=== PATIENT | female | born 1965 | race Caucasian/White ===

== ENCOUNTER 2023-10-28 12:24 | Inpatient (IN) | payer OTHER ==
[2023-10-28] MEDS ORDERED: NA CHLORIDE 0.9% 500 ML ONE (13:04)
[2023-10-28] MEDS ORDERED: ASPIRIN 81 MG CHEWABLE TABLET ONE (13:04)
[2023-10-28 13:10] LABS: Absolute Basophils 0.1 K/uL (0-0.5); Absolute Eosinophils 0.4 K/uL (0-0.5); Absolute Lymphocytes (CBC) 2.8 K/uL (0.7-4.9); Absolute Monocytes 0.6 K/uL (0.1-1.3); Absolute Neutrophil 3.4 K/uL (1.8-8.0); Basophils % 1.3 % (0-1.3); Hemoglobin 13.2 g/dL (12.0-15.0); Lymphocytes % 38.4 % (15.3-44.8); MCH 31.1 pg (27.0-35.0); MCHC 33.8 g/dL (32.0-36.0); MCV 92.2 fL (80-100); MPV 8.5 fL (7.6-11.3); Monocytes % 8.5 % (3.3-12.3); Neutrophils % 45.8 % (41.7-73.7); Platelets 310 thou/uL (152-406); RBC Red Blood Cell Count 4.23 M/uL (3.86-4.86); Red Cell Distribution Width 13.6 % (12.1-15.2)
[2023-10-28 13:21] LABS: D-Dimer 0.598 FEUug/mL (0-0.500); PT Prothrombin Time 10.8 SECONDS (9.4-12.5); Protime INR 0.96
[2023-10-28 13:29] LABS: Anion Gap 9.5 mEq/L (5.0-15.0); Potassium 3.5 mEq/L (3.5-5.1)
[2023-10-28 13:31] LABS: Troponin High Sensitivity 296.5 pg/mL (<58.9)
--- NOTE | 2023-10-28 13:50 | RAD REPORT ---
EXAM DESCRIPTION: Brianna Single View10/28/2023 1:36 pm CLINICAL HISTORY: Chest pain COMPARISON: none FINDINGS: The lungs appear clear of acute infiltrate. The heart is mildly enlarged IMPRESSION: No acute abnormalities displayed
--- NOTE | 2023-10-28 13:51 | ER ---
Nurse's Notes [facility] Name: Shruthi Cisneros Age: 58 yrs Sex: Female : 1965 Arrival Date: 10/28/2023 Time: 12:24 Bed 3 Private MD: Diagnosis: Non ST elevation PR;Essential (primary) hypertension Presentation: 10/27 12:33 Chief complaint: Patient states: chest pain X 1 hour, radiating to jaw , crushing pain iw and pain through shoulder blades, has been having pains for past month, worse today. Coronavirus screen: At this time, the client does not indicate any symptoms associated with coronavirus-19. Ebola Screen: No symptoms or risks identified at this time. Initial Sepsis Screen: Does the patient meet any 2 criteria? No. Patient's initial sepsis screen is negative. Does the patient have a suspected source of infection? No. Patient's initial sepsis screen is negative. Risk Assessment: Do you want to hurt yourself or someone else? Patient reports no desire to harm self or others. Onset of symptoms was October 28, 2023. 12:33 Method Of Arrival: Ambulatory iw 12:33 Acuity: SYLVIA 2 iw Historical: - Allergies: 15:00 PENICILLINS; cm10 - PMHx: 12:35 Hypertensive disorder; iw - Immunization history:: Adult Immunizations up to date. - Infectious Disease History:: Denies. - Social history:: Smoking status: unknown. Screenin:00 [facility] ED Fall Risk Assessment (Adult) History of falling in the last 3 months, cm10 including since admission No falls in past 3 months (0 pts) Confusion or Disorientation No (0 pts) Intoxicated or Sedated No (0 pts) Impaired Gait No (0 pts) Mobility Assist Device Used No (0 pt) Altered Elimination No (0 pt) Score/Fall Risk Level 0 - 2 = Low Risk Oriented to surroundings, Maintained a safe environment, Hourly rounding (assess needs \\T\\ fall precautionary measures) done. Abuse screen: Denies threats or abuse. Denies injuries from another. Nutritional screening: No deficits noted. Tuberculosis screening: No symptoms or risk factors identified. Assessment: 13:00 General: Appears in no apparent distress. comfortable, Behavior is calm, cooperative. cm10 Pain: Complains of pain in chest Pain radiates to back Pain currently is 4 out of 10 on a pain scale. Quality of pain is described as "like someone is punching me" Pain began 30 min ago. Neuro: No deficits noted. Level of Consciousness is awake, alert, obeys commands, Oriented to person, place, time, situation, Appropriate for age. Cardiovascular: Chest pain is described as Pain is 3 out of 10 on a pain scale. quality is "like someone punched me" is located in substernal area radiates to bilateral back jaw(s) neck began 1 month ago. worse today. Cardiovascular: Heart tones present Patient's skin is warm and dry. Respiratory: No deficits noted. Airway is patent Respiratory effort is even, unlabored, Respiratory pattern is regular, symmetrical. 14:19 General: Pt in ultrasound at this time.. cm10 14:50 Reassessment: Pt returned from radiology at this time. cm10 16:55 Reassessment: Patient appears in no apparent distress at this time. No changes from cm10 previously documented assessment. Patient and/or family updated on plan of care and expected duration. Pain level reassessed. Patient is alert, oriented x 3, equal unlabored respirations, skin warm/dry/pink. 17:55 Reassessment: Patient appears in no apparent distress at this time. No changes from cm10 previously documented assessment. Patient and/or family updated on plan of care and expected duration. Pain level reassessed. Patient is alert, oriented x 3, equal unlabored respirations, skin warm/dry/pink. Vital Signs: 12:33 BP 176 / 105; Pulse 66; Resp 16; Temp 97.5; Pulse Ox 96% on R/A; Weight 99.79 kg; iw Height 5 ft. 8 in. ; Pain 3/10; 13:51 Weight 102.8 kg (M); cm10 14:58 BP 184 / 85; Pulse 63; Resp 16; Pulse Ox 99% on R/A; cm10 15:00 BP 178 / 94; Pulse 59; Resp 19; Pulse Ox 99% ; cm10 16:00 BP 145 / 85; Pulse 62; Resp 19; Pulse Ox 97% on R/A; cm10 17:00 BP 155 / 75; Pulse 59; Resp 18; Pulse Ox 99% on R/A; cm10 12:33 Body Mass Index 33.45 (102.80 kg, 172.72 cm) iw 12:33 Pain Scale: Adult iw ED Course: 12:26 Patient arrived in ED. ra3 12:34 Triage completed. iw 12:35 Arm band placed on. iw 12:38 Kvng Collazo MD is Attending Physician. enriqueta 12:50 Lorena Rodriguez, RN is Primary Nurse. cm10 12:51 Patient placed in an exam room, on a stretcher. ll1 13:00 Patient has correct armband on for positive identification. Bed in low position. Call cm10 light in reach. Side rails up X 1. Provided Education on: ER process and procedures.. Client placed on continuous cardiac and pulse oximetry monitoring. NIBP monitoring applied. traffic monitor specialist on. Warm blanket given. 13:09 D-Dimer Sent. cm10 13:09 BNP Sent. cm10 13:09 PT-INR Sent. cm10 13:09 Basic Metabolic Panel Sent. cm10 13:09 CBC with Diff Sent. cm10 13:09 Troponin HS Sent. cm10 13:09 Initial lab(s) drawn, by co, sent to lab. Inserted saline lock: 20 gauge in left cm10 antecubital area, using aseptic technique. Blood collected. Flushed with 10 mL NS. Missed attempt(s): 20 gauge in left antecubital area. Bleeding controlled, band aid applied, catheter tip intact. Patient maintains SpO2 saturation greater than 95% on room air. 13:38 XRAY Chest (1 view) In Process Unspecified. EDMS 13:50 Jules Oh MD is Hospitalizing Provider. [facility] 18:31 Report faxed at [phone]. Alondra confirmed received at [phone]. [facility] 18:31 No provider procedures requiring assistance completed. Patient admitted, IV remains in cm10 place. Administered Medications: 13:09 Drug: Aspirin PO Chewable Tablet 324 mg PO once; 81 mg tablets x 4 Route: PO; cm10 14:09 Follow up: Response: No adverse reaction cm10 13:09 Drug: NS 0.9% IV 500 ml IV at bolus once Route: IV; Rate: bolus; Site: left antecubital;cm10 15:01 Follow up: Response: No adverse reaction; IV Status: Completed infusion; IV Intake: cm10 500ml 14:50 Drug: Heparin (PR-Bolus No thrombolytic) - HEParin IVP 60 units/kg IVP once; Max 5000 cm10 units {Co-Signature: bp (Fransisco Lopez RN).} Route: IVP; Site: right hand; 15:16 Follow up: Response: No adverse reaction cm10 14:50 Drug: Clopidogrel PO 300 mg PO once Route: PO; cm10 15:50 Follow up: Response: No adverse reaction cm10 14:50 Drug: Metoprolol PO 50 mg PO once Route: PO; cm10 15:50 Follow up: Response: No adverse reaction cm10 14:50 Drug: Atorvastatin PO 40 mg PO once Route: PO; cm10 15:50 Follow up: Response: No adverse reaction cm10 14:56 Drug: Famotidine IVP 20 mg IVP once; dilute with 10 mL 0.9% NaCl; give over 2 minutes cm10 Route: IVP; Site: right hand; 15:30 Follow up: Response: No adverse reaction cm10 14:57 Drug: Heparin (PR Drip) 12 units/kg/hr - ([place] [address] units, D5W IV 500 ml) IV at cm10 calculated rate Per protocol; Max initial rate 1000 units/hr {Co-Signature: bp (Fransisco Lopez RN).} Route: IV; Rate: calculated rate; Site: right hand; 18:32 Follow up: Response: No adverse reaction; IV Status: Infusion continued upon admission cm10 Medication: 13:00 VIS not applicable for this client. cm10 Intake: 15:01 IV: 500ml; Total: 500ml. cm10 Outcome: 13:50 Decision to Hospitalize by Provider. [facility] 17:00 Admitted to ER Hold. Please see [facility] for further documentation. cm10 17:00 Condition: good 17:00 Instructed on the need for admit, 19:03 Patient left the ED. ha1 Signatures: Dispatcher [employer] EDMS Kvng Collazo MD MD cha Williams, Irene, RN RN iw Yuriy Castillo RN RN ll1 Rosmery Sainz RN RN ha1 Lorena Rodriguez RN RN cm10 Alva, Ruby ra3 Fransisco Lopez RN bp Corrections: (The following items were deleted from the chart) 12:34 12:33 BP 176 / 105; Pulse 66bpm; Resp 16bpm; Pulse Ox 96% RA; Temp 97.5F; iw iw 15:01 12:35 Allergies: No Known Allergies; iw cm10
--- NOTE | 2023-10-28 13:51 | EDPHYS ---
Physician Documentation [facility] Name: Shruthi Cisneros Age: 58 yrs Sex: Female : 1965 Arrival Date: 10/28/2023 Time: 12:24 Bed 3 Private MD: ED Physician Kvng Collazo HPI: 10/27 13:42 This 58 yrs old Female presents to ER via Ambulatory with complaints of Chest enriqueta Pain. 13:42 The patient or guardian reports chest pain that is located primarily in the substernal enriqueta area. Onset: 1 day(s) ago. Historical: - Allergies: 15:00 PENICILLINS; cm10 - PMHx: 12:35 Hypertensive disorder; iw - Immunization history:: Adult Immunizations up to date. - Infectious Disease History:: Denies. - Social history:: Smoking status: unknown. ROS: 13:46 Constitutional: Negative for fever, chills, and weight loss, Eyes: Negative for injury, enriqueta pain, redness, and discharge, ENT: Negative for injury, pain, and discharge, Neck: Negative for injury, pain, and swelling, Respiratory: Negative for shortness of breath, cough, wheezing, and pleuritic chest pain, Abdomen/GI: Negative for abdominal pain, nausea, vomiting, diarrhea, and constipation, Back: Negative for injury and pain, : Negative for injury, bleeding, discharge, and swelling, MS/Extremity: Negative for injury and deformity, Skin: Negative for injury, rash, and discoloration, Neuro: Negative for headache, weakness, numbness, tingling, and seizure, Psych: Negative for depression, anxiety, suicide ideation, homicidal ideation, and hallucinations, Allergy/Immunology: Negative for hives, rash, and allergies, Endocrine: Negative for neck swelling, polydipsia, polyuria, polyphagia, and marked weight changes, Hematologic/Lymphatic: Negative for swollen nodes, abnormal bleeding, and unusual bruising, 13:46 Cardiovascular: Positive for chest pain, Exam: 13:46 Constitutional: This is a well developed, well nourished patient who is awake, alert, enriqueta and in no acute distress. Head/Face: Normocephalic, atraumatic. Eyes: Pupils equal round and reactive to light, extra-ocular motions intact. Lids and lashes normal. Conjunctiva and sclera are non-icteric and not injected. Cornea within normal limits. Periorbital areas with no swelling, redness, or edema. ENT: Nares patent. No nasal discharge, no septal abnormalities noted. Tympanic membranes are normal and external auditory canals are clear. Oropharynx with no redness, swelling, or masses, exudates, or evidence of obstruction, uvula midline. Mucous membranes moist. Neck: Trachea midline, no thyromegaly or masses palpated, and no cervical lymphadenopathy. Supple, full range of motion without nuchal rigidity, or vertebral point tenderness. No Meningismus. Chest/axilla: Normal chest wall appearance and motion. Nontender with no deformity. No lesions are appreciated. Cardiovascular: Regular rate and rhythm with a normal S1 and S2. No gallops, murmurs, or rubs. Normal PMI, no JVD. No pulse deficits. Respiratory: Lungs have equal breath sounds bilaterally, clear to auscultation and percussion. No rales, rhonchi or wheezes noted. No increased work of breathing, no retractions or nasal flaring. Abdomen/GI: Soft, non-tender, with normal bowel sounds. No distension or tympany. No guarding or rebound. No evidence of tenderness throughout. Back: No spinal tenderness. No costovertebral tenderness. Full range of motion. Female : Normal external genitalia. Skin: Warm, dry with normal turgor. Normal color with no rashes, no lesions, and no evidence of cellulitis. MS/ Extremity: Pulses equal, no cyanosis. Neurovascular intact. Full, normal range of motion. Neuro: Awake and alert, GCS 15, oriented to person, place, time, and situation. Cranial nerves II-XII grossly intact. Motor strength 5/5 in all extremities. Sensory grossly intact. Cerebellar exam normal. Normal gait. Psych: Awake, alert, with orientation to person, place and time. Behavior, mood, and affect are within normal limits. 13:46 ECG was reviewed by the Attending Physician. Vital Signs: 12:33 BP 176 / 105; Pulse 66; Resp 16; Temp 97.5; Pulse Ox 96% on R/A; Weight 99.79 kg; iw Height 5 ft. 8 in. ; Pain 3/10; 13:51 Weight 102.8 kg (M); cm10 14:58 BP 184 / 85; Pulse 63; Resp 16; Pulse Ox 99% on R/A; cm10 15:00 BP 178 / 94; Pulse 59; Resp 19; Pulse Ox 99% ; cm10 16:00 BP 145 / 85; Pulse 62; Resp 19; Pulse Ox 97% on R/A; cm10 17:00 BP 155 / 75; Pulse 59; Resp 18; Pulse Ox 99% on R/A; cm10 12:33 Body Mass Index 33.45 (102.80 kg, 172.72 cm) iw 12:33 Pain Scale: Adult iw MDM: 12:38 Patient medically screened. enriqueta 13:47 Differential diagnosis: abnormal EKG, acute myocardial infarction, acute pericarditis, enriqueta anxiety, coronary artery disease chest wall pain, Cholelithiasis costochondritis, esophagitis, gastritis, herpes zoster, hiatal hernia, pancreatitis, peptic ulcer disease, pericarditis, pleurisy, pulmonary embolus, stable angina, thoracic aortic disection, unstable angina. HEART Score: History: Moderately Suspicious (1), ECG: Non specific repolarization disturbance / LBTB / PM (1), Age: > 45 and < 65 years (1), Risk Factors: > or = 3 Risk factors for atherosclerotic disease (2), [Hypercholesterolemia] [Hypertension] [+ Family HX] [Obesity] Troponin: > or = 3 x Normal Limit (2), Total Score = 6. The patient was given aspirin in the Emergency Department. PRASAD Risk Score: 1 - Three or more CAD risk factors, 1- Known CAD, 1 - Recent [<24hrs] Severe Angina, 1 - Elevated Cardiac Markers, TOTAL SCORE = 4. Data reviewed: vital signs, nurses notes, lab test result(s), EKG, radiologic studies, plain films. Consideration of Admission/Observation Escalation of care including admission/observation considered. I considered the following discharge prescriptions or medication management in the emergency department Medications were administered in the Emergency Department. See MAR. Independent interpretation of the following test(s) in the Emergency Department EKG: See my EKG interpretation above. Test considered but Not performed: CT: NO CT CHEST. 10/27 12:36 Order name: Basic Metabolic Panel; Complete Time: 13:40 iw 10/27 12:36 Order name: CBC with Diff; Complete Time: 13:40 iw 10/27 12:36 Order name: Troponin HS; Complete Time: 13:40 iw 10/27 12:39 Order name: PT-INR; Complete Time: 13:40 [facility] 10/27 12:39 Order name: BNP; Complete Time: 13:40 [facility] 10/27 12:39 Order name: D-Dimer; Complete Time: 13:40 [facility] 10/27 14:00 Order name: Lipid Profile [facility] 10/27 17:07 Order name: Troponin High Sensitivity [facility] 10/27 12:36 Order name: XRAY Chest (1 view) 10/27 13:50 Order name: CT Chest For PE Angio [facility] 10/27 13:50 Order name: US Extremity Venous W Compression Keanu [facility] 10/27 14:23 Order name: CT [facility] 10/27 15:04 Order name: US [facility] 10/27 12:39 Order name: EKG; Complete Time: 12:40 [facility] 10/27 13:57 Order name: CONS Physician Consult [facility] 10/27 12:36 Order name: Cardiac monitoring; Complete Time: 13:08 10/27 12:36 Order name: EKG - Nurse/Tech; Complete Time: 12:50 10/27 12:36 Order name: IV Saline Lock; Complete Time: 13:08 10/27 12:36 Order name: Labs collected and sent; Complete Time: 13:08 10/27 12:36 Order name: O2 Per Protocol; Complete Time: 13:08 10/27 12:36 Order name: O2 Sat Monitoring; Complete Time: 13:09 EC:46 Rate is 66 beats/min. Rhythm is regular. QRS Thomson is Normal. SD interval is normal. QRS enriqueta interval is normal. QT interval is normal. No Q waves. T waves are Normal. No ST changes noted. Clinical impression: NSR w/ Non-specific ST/T Changes and No evidence of ischemia. Interpreted by me. Reviewed by me. Administered Medications: 13:09 Drug: Aspirin PO Chewable Tablet 324 mg PO once; 81 mg tablets x 4 Route: PO; cm10 14:09 Follow up: Response: No adverse reaction cm10 13:09 Drug: NS 0.9% IV 500 ml IV at bolus once Route: IV; Rate: bolus; Site: left antecubital;cm10 15:01 Follow up: Response: No adverse reaction; IV Status: Completed infusion; IV Intake: cm10 500ml 14:50 Drug: Heparin (NM-Bolus No thrombolytic) - HEParin IVP 60 units/kg IVP once; Max 5000 cm10 units {Co-Signature: bp (Fransisco Lopez RN).} Route: IVP; Site: right hand; 15:16 Follow up: Response: No adverse reaction cm10 14:50 Drug: Clopidogrel PO 300 mg PO once Route: PO; cm10 15:50 Follow up: Response: No adverse reaction cm10 14:50 Drug: Metoprolol PO 50 mg PO once Route: PO; cm10 15:50 Follow up: Response: No adverse reaction cm10 14:50 Drug: Atorvastatin PO 40 mg PO once Route: PO; cm10 15:50 Follow up: Response: No adverse reaction cm10 14:56 Drug: Famotidine IVP 20 mg IVP once; dilute with 10 mL 0.9% NaCl; give over 2 minutes cm10 Route: IVP; Site: right hand; 15:30 Follow up: Response: No adverse reaction cm10 14:57 Drug: Heparin (NM Drip) 12 units/kg/hr - ([place] [address] units, D5W IV 500 ml) IV at cm10 calculated rate Per protocol; Max initial rate 1000 units/hr {Co-Signature: bp (Fransisco Lopez RN).} Route: IV; Rate: calculated rate; Site: right hand; 18:32 Follow up: Response: No adverse reaction; IV Status: Infusion continued upon admission cm10 Disposition Summary: 10/28/23 13:50 Hospitalization Ordered Notes: Hospitalization Status: Inpatient Admission enriqueta Provider: Jules Oh cha Condition: Fair enriqueta Problem: new enriqueta Symptoms: have improved enriqueta Bed/Room Type: Standard enriqueta Location: Telemetry/MedSurg (Inpatient)(10/28/23 18:14) Room Assignment: 216(10/28/23 18:14) Diagnosis - Non ST elevation NM enriqueta - Essential (primary) hypertension enriqueta Forms: - Medication Reconciliation Form enriqueta - SBAR form enriqueta - Leadership Thank You Letter enriqueta Signatures: Dispatcher [employer] Grace Valenzuela Corey, MD MD cha Williams, Irene, RN RN Whitney Linton RN RN Lorena Rodriguez RN RN cm10 Fransisco Lopez RN bp Corrections: (The following items were deleted from the chart) 12:36 12:36 BASIC METABOLIC PANEL+C.LAB.BRZ ordered. EDMS EDMS 12:36 12:36 CBC+H.LAB.BRZ ordered. EDMS EDMS 12:36 12:36 Troponin High Sensitivity+C.LAB.BRZ ordered. EDMS EDMS 12:36 12:36 Chest Single View+RAD.RAD.BRZ ordered. EDMS EDMS 12:40 12:40 PROTIME (+INR)+COAG.LAB.BRZ ordered. EDMS EDMS 12:40 12:40 PROBNP+C.LAB.BRZ ordered. EDMS EDMS 12:40 12:40 D-DIMER+COAG.LAB.BRZ ordered. EDMS EDMS 13:39 12:40 Chest Single View+RAD.RAD.BRZ ordered. EDMS EDMS 14:15 13:50 Telemetry/MedSurg (Inpatient) enriqueta enriqueta 14:15 13:50 enriqueta enriqueta 15:01 12:35 Allergies: No Known Allergies; iw cm10 17:08 14:15 Intensive Care Unit [facility] bd 17:08 14:15 [facility] bd 18:14 17:08 [facility] ER HOLD bd ss 18:14 17:08 ERHOLD- bd ss
[2023-10-28] MEDS ORDERED: METOPROLOL XL 50 MG TAB PO ONE (13:57)
[2023-10-28] MEDS ORDERED: FAMOTIDINE 20 MG/2 ML VIAL IV ONE (13:57)
[2023-10-28] MEDS ORDERED: HEPARIN 5000 UNIT/ML 1 ML VIAL ONE (13:57)
[2023-10-28] MEDS ORDERED: CLOPIDOGREL 75 MG TABLET ONE (13:57)
[2023-10-28] MEDS ORDERED: HEPARIN/D5W 25,000 UNIT/500 ML BAG IV ONE (13:58)
[2023-10-28] MEDS ORDERED: ATORVASTATIN 40 MG TAB ONE (14:06)
--- NOTE | 2023-10-28 14:22 | RAD REPORT ---
EXAM DESCRIPTION: CT - Chest For Pe Angio - 10/28/2023 2:04 pm CLINICAL HISTORY: Chest pain COMPARISON: None. TECHNIQUE: Dynamically enhanced axial 3 mm thick images of the chest were obtained during administra tion of 100 mL Isovue 370 IV contrast. Coronal and oblique reconstruction images were generated and r eviewed. Exam utilizes a protocol for optimal evaluation of pulmonary arterial tree. Maximum intensity projections 3D imaging was utilized All CT scans are performed using dose optimization technique as appropriate and may include automated exposure control or mA/KV adjustment according to patient size. FINDINGS: A pulmonary embolus is not seen. A thoracic aortic aneurysm is not noted. A pleural effusion is not seen. A pericardial effusion is not seen. A lung consolidation is not present. Small hiatal hernia IMPRESSION: Negative for a pulmonary embolism.
[2023-10-28] MEDS ORDERED: ONDANSETRON 4 MG/2 ML VIAL IV PRN (14:56)
[2023-10-28] MEDS ORDERED: MORPHINE 4 MG/ML SYR IV PRN (14:56)
[2023-10-28] MEDS ORDERED: ACETAMINOPHEN 325 MG TABLET PO PRN (15:01)
--- NOTE | 2023-10-28 15:04 | RAD REPORT ---
EXAM DESCRIPTION: USExtrem Venous W Compress Bil10/28/2023 2:48 pm CLINICAL HISTORY: Leg pain COMPARISON: none FINDINGS: The common femoral, superficial femoral, greater saphenous, popliteal and posterior tibial veins bilaterally are compressible and demonstrate augmentation. Doppler demonstrates good flow. Grayscale, color and spectral analysis performed on all vessels IMPRESSION: No evidence of deep venous thrombosis involving either lower extremity.
[2023-10-28] MEDS: METOPROLOL TAR 25 MG TAB PO SCH (18:00)
[2023-10-28 18:05] VITALS: BMI 34.4
--- NOTE | 2023-10-28 18:35 | P.CNS ---
Date of Consult: 10/28/23 Chief Complaint: Chest pain History of Present Illness: Patient with PMH of HTN, Tobacco use, presented with chest discomfort that has been going on for the last 2 weeks, got worse recently, mid chest, radiated to her back and left arm with finger numbness, denies SOB, no palpitations, no syncope. Allergies No Known Allergies Allergy (Unverified 10/28/23 14:03) Home medications list reviewed: Yes - Social History Smoking Status: Current every day smoker Review of Systems 10-point ROS is otherwise unremarkable Physical Examination Temp Pulse Resp BP Pulse Ox 59 19 155/75 H 99 10/28/23 17:00 10/28/23 17:00 10/28/23 17:00 10/28/23 17:00 General: Alert, In no apparent distress HEENT: Atraumatic, PERRLA, Mucous membr. moist/pink, EOMI, Sclerae nonicteric Neck: Supple, 2+ carotid pulse no bruit, No LAD, Without JVD or thyroid abn ormality Respiratory: Clear to auscultation bilaterally, Normal air movement Cardiovascular: Regular rate/rhythm, Normal S1 S2 Gastrointestinal: Normal bowel sounds, No tenderness Musculoskeletal: No tenderness Integumentary: No rashes Neurological: Normal gait, Normal speech, Normal tone, Normal affect Lymphatics: No axilla or inguinal lymphadenopathy Laboratory Data (last 24 hrs) 10/28/23 10/28/23 10/28/23 13:00 13:00 13:00 WBC 7.40 Hgb 13.2 Hct 39.0 Plt Count 310 PT 10.8 INR 0.96 Sodium 138 Potassium 3.5 BUN 14 Creatinine 1.10 H Glucose 94 - Problems (1) NSTEMI (non-ST elevated myocardial infarction) Current Visit: Yes Status: Acute Plan: NPO after midnight for coronary angiogram in am ASA 81 mg daily Lipitor 40 mg daily Heparin ACS protocol Get Echo (2) HTN (hypertension) Current Visit: Yes Status: Acute Plan: Continue Metoprolol and Norvasc
--- NOTE | 2023-10-28 18:36 | P.SSS ---
Patient History Date of Service: 10/28/23 Reason for admission: CHEST PAIN History of Present Illness: GAURAV IS A 58 Y OLD SMOKER WHO HAS BEEN HAVING CHEST PRESSURE IN SUBSTERNAL REGION OFF AND ON FOR 2 WEEKS. NO NAUSEA.NO SYNCOPE. PAIN DI DID RADIATE TO JAW. Allergies No Known Allergies Allergy (Unverified 10/28/23 14:03) Home medications list reviewed: Yes - Past Medical/Surgical History Has patient received pneumonia vaccine in the past: No Review of Systems 10-point ROS is otherwise unremarkable Physical Examination - Vital Signs Blood Pressure: 155/75 Pulse: 59 Respirations: 19 Pulse Ox (%): 99 - Physical Exam General: Mild distress HEENT: Atraumatic, PERRLA, Mucous membr. moist/pink, EOMI, Sclerae nonicteric Neck: Supple, 2+ carotid pulse no bruit, No LAD, Without JVD or thyroid abnormality Respiratory: Clear to auscultation bilaterally, Normal air movement Cardiovascular: Regular rate/rhythm, Normal S1 S2 Gastrointestinal: Normal bowel sounds, No tenderness Musculoskeletal: No tenderness Integumentary: No rashes Neurological: Normal gait, Normal speech, Normal strength at 5/5 x4 extr, Normal tone, Normal affect Lymphatics: No axilla or inguinal lymphadenopathy - Studies Laboratory Data (last 24 hrs) 10/28/23 10/28/23 10/28/23 13:00 13:00 13:00 WBC 7.40 Hgb 13.2 Hct 39.0 Plt Count 310 PT 10.8 INR 0.96 Sodium 138 Potassium 3.5 BUN 14 Creatinine 1.10 H Glucose 94 Treatment Summary: CHEST PAIN ELEV TROP NSTEMI CATH IN AM CONT MEDS ASA HEPARIN O2 PRN. - Disposition Disposition: ROUTINE DISCHARGE
[2023-10-28] MEDS ORDERED: NA CHLORIDE 0.9% 1,000 ML ONE (18:49)
[2023-10-28] MEDS: NA CHLORIDE 0.9% 1,000 ML IV SCH (18:55)
[2023-10-28] MEDS: ATORVASTATIN 40 MG TAB PO SCH (20:30)
[2023-10-28] MEDS: FAMOTIDINE 20 MG/2 ML VIAL IV SCH (20:30)
[2023-10-28] MEDS: AMLODIPINE 5 MG TAB PO SCH (22:02)
[2023-10-28] MEDS ORDERED: HEPARIN/D5W 25,000 UNIT/500 ML BAG IV SCH (23:45)
[2023-10-29 04:49] LABS: Absolute Basophils 0.1 K/uL (0-0.5); Absolute Eosinophils 0.5 K/uL (0-0.5); Absolute Lymphocytes (CBC) 2.5 K/uL (0.7-4.9); Absolute Monocytes 0.7 K/uL (0.1-1.3); Absolute Neutrophil 3.1 K/uL (1.8-8.0); Basophils % 1.1 % (0-1.3); Eosinophils % 6.6 % (0-4.4); Hematocrit 36.2 % (36.0-45.0); Lymphocytes % 36.8 % (15.3-44.8); MCH 32.3 pg (27.0-35.0); MCHC 35.9 g/dL (32.0-36.0); MCV 90.1 fL (80-100); MPV 8.4 fL (7.6-11.3); Monocytes % 10.1 % (3.3-12.3); Neutrophils % 45.4 % (41.7-73.7); Nucleated Red Blood Cells % 0.1 % (0-0); Platelets 306 thou/uL (152-406); RBC Red Blood Cell Count 4.02 M/uL (3.86-4.86); Red Cell Distribution Width 13.9 % (12.1-15.2)
[2023-10-29 04:55] LABS: Anion Gap 10.5 mEq/L (5.0-15.0); Potassium 3.5 mEq/L (3.5-5.1)
[2023-10-29 06:26] VITALS: TEMP 97.4
--- NOTE | 2023-10-29 07:25 | RAD REPORT ---
EXAM DESCRIPTION: RAD - Chest Single View - 10/29/2023 5:55 am CLINICAL HISTORY: Chest Pain COMPARISON: Chest Single View dated 10/28/2023 FINDINGS: Lines: None. Lungs: No evidence of edema or pneumonia. Pleural: No significant pleural effusions or pneumothorax. Cardiac: Mild cardiomegaly. Mediastinum: Within normal limits. Bones: No acute fractures. Other: None IMPRESSION: No acute cardiopulmonary disease.
[2023-10-29] MEDS ORDERED: HEPARIN 10,000 UNIT/10 ML VIAL IV ONE (08:57)
[2023-10-29] MEDS ORDERED: HEPA 1000U/500MLS 2,000 UNIT/1,000 ML BAG IV ONE (09:09)
[2023-10-29] MEDS ORDERED: LIDOCAINE 1% 20 ML MDV ONE (09:09)
[2023-10-29] MEDS ORDERED: CLOPIDOGREL 75 MG TABLET ONE (09:10)
[2023-10-29] MEDS ORDERED: FENTANYL CITR 100 MCG/2 ML ONE (09:10)
[2023-10-29] MEDS ORDERED: MIDAZOLAM HCL 2 MG/2 ML INJ ONE (09:10)
[2023-10-29] MEDS ORDERED: HEPARIN 5000 UNIT/ML 1 ML VIAL ONE (09:10)
[2023-10-29] MEDS ORDERED: ATROPINE SULF 1 MG/10 ML SYR IV ONE (09:10)
[2023-10-29] MEDS ORDERED: TICAGRELOR 90 MG TABLET PO ONE (09:10)
--- NOTE | 2023-10-29 11:16 | P.PN ---
Subjective Date of Service: 10/29/23 Chief Complaint: CHEST PAIN Subjective: No new changes, No C/O voiced, Tolerating diet, Ambulating, Improving Review of Systems 10-point ROS is otherwise unremarkable Physical Examination - Vital Signs Temperature: 97.4 F Blood Pressure: 165/91 Pulse: 55 Respirations: 16 Pulse Ox (%): 97 - Physical Exam General: Alert, In no apparent distress HEENT: Atraumatic, PERRLA, EOMI Neck: Supple, JVD not distended Respiratory: Clear to auscultation bilaterally, Normal air movement Cardiovascular: Regular rate/rhythm, Normal S1 S2 Gastrointestinal: Normal bowel sounds, No tenderness Musculoskeletal: No tenderness Integumentary: No rashes Neurological: Normal speech, Normal tone, Normal affect Lymphatics: No axilla or inguinal lymphadenopathy - Studies Laboratory Data (last 24 hrs) 10/28/23 10/28/23 10/28/23 13:00 13:00 13:00 WBC 7.40 Hgb 13.2 Hct 39.0 Plt Count 310 PT 10.8 INR 0.96 Sodium 138 Potassium 3.5 BUN 14 Creatinine 1.10 H Glucose 94 Medications List Reviewed: Yes Assessment And Plan - Current Problems (Diagnosis) (1) NSTEMI (non-ST elevated myocardial infarction) Current Visit: Yes Status: Acute Plan: Coronary angiogram shown normal coronaries, 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 (2) HTN (hypertension) Current Visit: Yes Status: Acute Plan: Continue Metoprolol and Norvasc
[2023-10-29 11:32] VITALS: O2SAT 98
[2023-10-29] MEDS: ASPIRIN EC 81 MG TAB PO SCH (12:34)
[2023-10-29] MEDS: AMLODIPINE 10 MG TAB PO SCH (12:35)
[2023-10-29 12:36] VITALS: BP 149/86
[2023-10-29] MEDS: CLOPIDOGREL 75 MG TABLET PO SCH (12:36)
--- NOTE | 2023-10-29 16:21 | OP ---
Date of Procedure: 10/29/2023 Surgeon: Gregory Cavanaugh Procedure Performed: Selective coronary angiogram. Indication For Procedure: Dwh-MR-ykeruxeof [place]. Complications: None. Estimated Blood Loss: Less than 50 cc. Access: Right radial, closed by TR band. Sedation Time: 20 minutes with 1 of Versed and 50 of fentanyl. Description Of Procedure: After risks, and benefits, and alternatives were explained to patient, pat ient agreed to proceed with procedure and signed informed consent. [facility], prepped and draped in sterile fashion. Time-out was performed. Sedation was administer ed and next on right radial ultrasound-guided micropuncture technique, access was obtained. [place] 4. 0 catheter was advanced to the aortic root. The catheter was used for selective angiogram of the lef t and right coronary artery systems. At the end of procedure, catheter was removed over a J-wire. S anu was removed. TR band was applied. Hemostasis was achieved and the patient was moved back to [facility] in stable condition. Description: 1.Left main normal. 2.LAD normal. 3.Left circ normal. 4.RCA normal. Assessment And Plan: 1.Normal coronaries. 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 3.We will continue medical management for CAD. Add Imdur 30 mg daily. JAFFE/MODL Voice ID: [id number] Report ID: [id number]
--- NOTE | 2023-10-29 16:24 | EKG ---
Test Date: 2023-10-28 Test Time: 12:31:21 Weight Tester: ALEX MEASUREMENT RESULTS: Intervals: Rate: 66 UT: 184 QRSD: 92 QT: 444 QTc: 465 [place]: P: 16 UT: 184 QRS: -42 T: 40 INTERPRETIVE STATEMENTS: Normal sinus rhythm Left axis deviation Septal infarct, age undetermined Abnormal ECG Compared to ECG 09/28/2012 19:03:32 Left-axis deviation now present Myocardial infarct finding still present Electronically Signed On 10-29-23 16:21:46 CDT by Gregory Cavanaugh
== END 2023-10-29 13:27 | disposition home or self-care (01) | DRG 282 ==
LOC: ER 12:24 → ERHOLD 13:52 → 2ND 18:32
PROVIDERS: ADMIT Internal Medicine; ATTEND Internal Medicine
PROC: B2111ZZ Fluoroscopy of Multiple Coronary Arteries using Low Osmolar Contrast (ICD-10-PCS; principal; 2023-10-29)
PROC: 4A023N7 Measurement of Cardiac Sampling and Pressure, Left Heart, Percutaneous Approach (ICD-10-PCS; 2023-10-29)
DX: I21.4 Non-ST elevation (NSTEMI) myocardial infarction (principal); I10 Essential (primary) hypertension; F17.200 Nicotine dependence, unspecified, uncomplicated; Z88.0 Allergy status to penicillin
CPT/HCPCS: 36415; 71045; 71275; 76937; 80048; 80061; 83880; 84484; 85025; 85379; 85610; 85730; 93005; 93454; 93970; 96361; 96365; 96366; 96375; 99152; 99153; 99285; C1893; J0461; J1644; J2001; J2250; J3010; J7030; J7040; Q9966; Q9967